=== PATIENT | male | born 2000 | race Caucasian/White ===

== ENCOUNTER 2021-05-01 07:37 | Emergency (ER) | payer BC, SELFPAY ==
[2021-05-01 08:20] VITALS: BP 130/93; PULSE 95; RESP 14; TEMP 36.5; O2SAT 99
--- NOTE | 2021-05-01 08:29 | ED.UPPEXIN ---
HPI - Extremity Injury (Upper) General Chief Complaint: Extremity Injury, Upper Stated Complaint: SHOULDER PAIN Time Seen by Provider: 05/01/21 08:29 Source: patient Mode of arrival: ambulatory Limitations: no limitations History of Present Illness HPI narrative: 18-year-old man comes in today complaining of left anterior shoulder pain that started 2 nights ago when he was laying down and raising his arm. He states that he sleeps prone with his arms overhead. Since then he has had pain with motion and palpation of the anterior shoulder as well as some numbness in his left hand. He states he has had some right shoulder rotator cuff problems but never any left shoulder problems or injuries. He is concerned that it is dislocated. complaint: injury to: left and shoulder Onset (ago): day(s) (2) Other Extremity Injury: Left: shoulder Other injuries: none Place: home Severity: moderate Relieving factors: rest Exacerbating factors: movement of extremity Associated symptoms: numbness Related Data Home Medications Medication Instructions Recorded Confirmed No Home Medications 05/01/21 05/01/21 Allergies Allergy/AdvReac Type Severity Reaction Status Date / Time azithromycin [From Zithromax] Allergy Unknown Verified 05/01/21 08:42 Review of Systems Cardiovascular: Cardiovascular: Denies chest pain and Denies radiating jaw, neck or arm pain Respiratory: Respiratory: Denies cough and Denies dyspnea Gastrointestinal: Gastrointestinal: Denies nausea and Denies vomiting Musculoskeletal: Musculoskeletal: Denies arthralgias and Denies joint swelling Integumentary/Breasts: Skin/Breast: Denies pruritus, Denies erythema and Denies rash Neurologic: Denies focal weakness and Reports numbness Hematologic/Lymphatic: Hematologic/Lymphatic: Denies easy bleeding and Denies easy bruising Allergic/Immunologic: Allergic/Immunologic: Denies lip swelling and Denies throat swelling [facility] Social History Social History (Updated 05/01/21 @ 08:42 by Sanjay Adame MD) Substance use type: marijuana Other substance usage details: Occasional Living arrangements: with family Exam Const: General: healthy appearing and alert Orientation/consciousness: patient oriented x3 Limitations: no limitations Other: [id number] acute distress. Neck: Neck: normal visual inspection Other: No tenderness. Normal range of motion. Resp: Effort & Inspection: normal respiratory effort and not labored Auscultation: clear to auscultation bilaterally, no rales, no rhonchi and no wheezes Cardio: Rate: regular rate Rhythm: regular rhythm Heart sounds: no murmurs Skin: General skin exam: normal color, no jaundice and no pallor Rashes: no rashes Neuro: General: patient oriented x3, moves all extremities, no focal motor deficits and CN's II-XI intact bilaterally Speech: normal speech Gait exam (Neuro): Normal gait present Other: Normal hand strength bilaterally normal elbow flexion extension strength bilaterally Extrem: General: normal to inspection and no clubbing, cyanosis or edema Other: Tenderness to palpation of the anterior glenohumeral joint without swelling or abnormal contour. Mild tenderness palpation of the left trapezius. Decreased abduction Psych: Appearance: grossly normal and well kempt Mental Status: mental status grossly normal Affect: normal affect Attitude: cooperative Thought content: Yes Normal thought content present Discharge Plan Discharge Clinical Impression: Injury of left rotator cuff Qualifiers: Encounter type: initial encounter Qualified Code(s): S46.002A - Unspecified injury of muscle(s) and tendon(s) of the rotator cuff of left shoulder, initial encounter Patient Disposition: Home, Self-Care Condition: Stable Instructions: Rotator Cuff Injury (ED) Additional Instructions: Rest, ice, ibuprofen. No overhead work. Limit lifting with your left arm. Up with your primary care doctor for fu
[2021-05-01] MEDS: IBUPROFEN 400 MG TABLET 800 MG PO (09:04)
== END 2021-05-01 09:46 | disposition home or self-care (01) ==
PROVIDERS: Emergency Provider Emergency Medicine; PCP Family Medicine
DX: S46.002A Unspecified injury of muscle(s) and tendon(s) of the rotator cuff of left shoulder, initial encounter (principal)
CPT/HCPCS: 99283; A9270

== ENCOUNTER 2022-02-26 16:20 | Outpatient (CLI) | payer BC, SELFPAY ==
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
== END 2022-02-26 16:21 | disposition home or self-care (01) ==
LOC: CHSIMG 16:22
PROVIDERS: PCP Family Medicine; Visit Provider Family Medicine
DX: S06.9X9A Unspecified intracranial injury with loss of consciousness of unspecified duration, initial encounter (principal)
CPT/HCPCS: 70450

== ENCOUNTER 2023-01-16 11:28 | Emergency (ER) | payer BC, SELFPAY ==
--- NOTE | ~2023-01-16 | CT_ITS ---
Non-contrast Head CT History: Paresthesias COMPARISON: 02/26/2022 Technique: Axial non-contrast imaging of the brain was performed. Dose reduction technique was used on this scan by utilizing automated exposure control and iterative reconstruction technique. The dose -length product (DLP) was 605.33 mGy-cm. Findings: There is no evidence of intracranial hemorrhage, mass lesion, or acute infarct. Brain par enchyma appears normal. The ventricles and subarachnoid spaces are normal in size. The calvarium ap pears normal. The visualized paranasal sinuses and mastoid air cells are clear. Impression: No significant abnormality seen. Reviewed, dictated and finalized at location . Impression: No significant abnormality seen.
[2023-01-16 11:33] VITALS: BP 139/88; PULSE 90; RESP 18; TEMP 37.2; O2SAT 100
--- NOTE | 2023-01-16 11:36 | ECG_ITS ---
Measurements Intervals [place] Rate: 91 P: 72 CA: 167 QRS: 35 QRSD: 96 T: 64 QT: 348 QTc: 430 Interpretive Statements SINUS RHYTHM POSSIBLE RIGHT ATRIAL ENLARGEMENT [0.25mV P-WAVE] INDETERMINATE AXIS BORDERLINE ECG NO PREVIOUS ECG AVAILABLE FOR COMPARISON Electronically Signed On 01-16-2023 15:33:15 CDT by Christ Aburto M.D.
--- NOTE | 2023-01-16 11:39 | ED.SYNCOPE ---
HPI - Syncope General Chief Complaint: Syncope Stated Complaint: SYNCOPE Time Seen by Provider: 01/16/23 11:35 Source: patient Mode of arrival: ambulatory History of Present Illness HPI narrative: 22-year-old male, smoker with a history of TBI,marijuana use has been partying for the past 4 days, He has been drinking alcohol and smoking marijuana. He went to bed at 4:00 a.m. this morning. 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 This was non witnessed. Duration of unresponsiveness is unknown. No head or spine injury. No ENT bleeding. Subsequently he got up without any focal deficits except for -- numbness of his left leg and left arm with decreased sensation. -- Palpitation. He felt he was having a heart attack. -- Transient chest pain over his left precordium. -- abrasions in his right hand from repairing fences no prior syncopal episodes. No headache or blurred vision no chest pain or shortness of breath at this time. MD complaint: loss of consciousness Onset (ago): hour(s) ( 2 hours ago) Prodromal symptoms: none Witnessed: No Context: during exertion Injuries sustained associated with event: none Current symptoms: weakness and other ( numbness of his left arm and leg) Treatments prior to arrival: none Related Data Home Medications Medication Instructions Recorded Confirmed No Home Medications 01/16/23 01/16/23 Allergies Allergy/AdvReac Type Severity Reaction Status Date / Time azithromycin [From Zithromax] Allergy Rash Verified 01/16/23 11:50 Review of Systems Review of Systems: All systems reviewed & are unremarkable except as noted in HPI and below Constitutional: Constitutional: Reports as per HPI, Reports no additional constitutional complaints and Reports weakness Eyes: Eyes: Reports as per HPI and Reports no additional eye complaints ENT: Reports system reviewed and no additional complaints, except as documented and Reports as per HPI Cardiovascular: Cardiovascular: Reports as per HPI and Reports no additional cardiovascular complaints Respiratory: Respiratory: Reports as per HPI and Reports no additional respiratory complaints Gastrointestinal: Gastrointestinal: Reports as per HPI and Reports no additional gastrointestinal complaints Genitourinary: Genitourinary: Reports no additional male genitourinary complaints Musculoskeletal: Musculoskeletal: Reports no additional musculoskeletal complaints and Reports as per HPI Integumentary/Breasts: Skin/Breast: Reports system reviewed and no additional complaints, except as docu Comments: Abrasions on his hands-- interdigital spaces Neurologic: Reports system reviewed and no additional complaints, except as documented, Reports as per HPI and Reports numbness ( numbness of left upper and lower extremity) Psychiatric: Psychiatric: Reports no additional psychiatric complaints, Reports as per HPI and Reports anxiety Endocrine: Endocrine: Reports no additional endocrine complaints and Reports as per HPI Hematologic/Lymphatic: Hematologic/Lymphatic: Reports no additional hematologic/lymphatic complaints and Reports as per HPI Allergic/Immunologic: Allergic/Immunologic: Reports no additional allergic/immunologic complaints and Reports as per HPI PMFSH Past Medical History Medical History No active medical problems Surgical History Surgical History No history of previous surgery Social History Social History Smoking status: Never smoker Tobacco type: e-cigarettes/vaping Substance use type: marijuana Other substance usage details: Occasional Living arrangements: with family Exam Const: General: healthy appearing Nutritional Appearance: thin Orientation/consciousness:
[2023-01-16 11:47] VITALS: O2SAT 94
[2023-01-16 12:03] LABS: Basophils Absolute Auto 0.07 K/mm3 (0.00-0.10); Basophils Percent Auto 1.1 % (0.0-1.0); Eosinophils Absolute Auto 0.02 K/mm3 (0.02-0.50); Eosinophils Percent Auto 0.3 % (1.0-6.0); Hematocrit 43.1 % (40.0-54.0); Hemoglobin 14.5 g/dL (14.0-18.0); Immature Granulocyte Absolute 0.02 K/mm3 (0.00-0.00); Immature Granulocyte Percent A 0.3 % (0.0-0.0); Lymphocytes Absolute Auto 1.35 K/mm3 (1.10-4.50); Lymphocytes Percent Auto 20.5 % (18.0-42.0); Mean Corpuscular HGB Conc 33.6 g/dL (32.0-36.0); Mean Corpuscular Hemoglobin 28.4 pg (27.0-31.0); Mean Corpuscular Volume 84.3 fL (78.0-102.0); Mean Platelet Volume 10.5 fl (8.7-11.0); Monocytes Absolute Auto 0.76 K/mm3 (0.10-0.90); Monocytes Percent Auto 11.6 % (2.0-11.0); Neutrophils Absolute Auto 4.4 K/mm3 (1.7-7.2); Neutrophils Percent Auto 66.2 % (50.0-70.0); Platelet Count Result 216 K/mm3 (150-420); Red Blood Count 5.11 M/mm3 (4.70-6.10); Red Cell Distribution Width 12.3 % (11.6-14.4); White Blood Count 6.6 K/mm3 (4.8-10.8)
[2023-01-16 12:22] LABS: Lactic Acid Reflex 2.1 mmol/L (0.4-2.0)
[2023-01-16 12:23] LABS: Alanine Aminotransferase 12 U/L (16-63); Albumin Level 4.6 g/dL (3.4-5.0); Alkaline Phosphatase 47 U/L (46-116); Anion Gap 9 mmol/L (8-16); Aspartate Amino Transferase 17 U/L (15-37); Bilirubin,Total 1.4 mg/dL (0.00-1.00); Blood Urea Nitrogen 15 mg/dL (7-18); Calcium 9.9 mg/dL (8.5-10.1); Carbon Dioxide 32 mmol/L (21-32); Chloride 101 mmol/L (98-108); Estimated CRCL calculation 91 ml/min; Estimated Glomerular Filt Rate > 60; Glucose 95 mg/dL (70-99); Osmolality Calculated 294 mOsm/kg (285-295); Potassium 3.5 mmol/L (3.5-5.1); Sodium 142 mmol/L (136-145)
[2023-01-16 12:24] LABS: Lipase 37 U/L (16-77); Troponin I 4.4 ng/L (0.00-60.4)
[2023-01-16 12:58] VITALS: BP 108/81; PULSE 87; RESP 20; TEMP 36.9; O2SAT 100
== END 2023-01-16 13:08 | disposition home or self-care (01) ==
PROVIDERS: Emergency Provider Internal Medicine Critical Care Medicine; PCP Family Medicine
DX: R55 Syncope and collapse (principal); R00.2 Palpitations; F41.9 Anxiety disorder, unspecified; F17.290 Nicotine dependence, other tobacco product, uncomplicated
CPT/HCPCS: 36415; 70450; 80053; 83605; 83690; 84484; 85025; 93005; 99284